=== PATIENT | male | born 1940 | race Caucasian/White ===

== ENCOUNTER → 2017-03-17 14:17 | Outpatient (CLI) | payer MEDICARE, OTHER ==
[~2017-03-17 14:17] MED LIST: AMOXICILLIN500 M1 PO; ASPIRIN81 MG PO; LIPITOR10 MG PO; PLAVIX75 MG PO
== END | disposition home or self-care (01) ==
LOC: D.US 14:17
DX: I65.23 Occlusion and stenosis of bilateral carotid arteries (principal)

== ENCOUNTER 2017-04-09 05:23 | Inpatient (IN) | payer MEDICARE, OTHER ==
[2017-04-08 10:48] LABS: HEMATOCRIT 42.8 % (42.0-54.0); HEMOGLOBIN 14.3 g/dL (13.5-17.5); MCHC 33.4 g/dL (31.0-37.0); MCV 98.8 fL (80.0-100.0); MEAN PLATELET VOLUME 9.7 fL (7.4-10.4); RBC 4.33 10x6/uL (4.20-6.10); RDW 12.4 % (11.5-14.5)
[2017-04-08 11:02] LABS: APTT 25.5 SECONDS (22.8-39.4); INR 0.96 (0.85-1.17); PROTIME 12.7 SECONDS (11.6-15.0)
[2017-04-08 11:19] LABS: ALBUMIN 3.8 g/dL (3.4-5.0); ANION GAP 7.8 mmol/L (8-16); BILIRUBIN - TOTAL 0.53 mg/dL (0.2-1.3); CALCIUM 11.3 mg/dL (8.5-10.1); CARBON DIOXIDE 30.1 mmol/L (21.0-32.0); CREATININE - SERUM 1.3 mg/dL (0.6-1.3); POTASSIUM - SERUM 4.9 mmol/L (3.5-5.1); PROTEIN - SERUM 7.5 g/dL (6.4-8.2)
[2017-04-08 11:21] LABS: APPEARANCE CLEAR (CLEAR); BILIRUBIN NEGATIVE (NEGATIVE); COLOR YELLOW (YELLOW); GLUCOSE NEGATIVE (NEGATIVE); KETONE NEGATIVE (NEGATIVE); LEUKOCYTE ESTERASE TRACE (NEGATIVE); NITRITE NEGATIVE (NEGATIVE); PROTEIN NEGATIVE (NEGATIVE); UROBILINOGEN NORMAL (NORMAL); WHITE CELLS - URINE 0-5 /hpf (0-5)
[2017-04-08 11:22] LABS: BACTERIA FEW /hpf (NONE SEEN); EPITHELIAL CELLS 0-5 /hpf (0-5); MUCUS <1+ /lpf (NONE SEEN); RED CELLS - URINE OCC /hpf (0-5)
[~2017-04-09] VITALS: Ht 172.7 cm; Wt 90.2 kg
[2017-04-09] VITALS (53 sets, daily range): BP systolic 109–154; BP diastolic 33–71; Ht 172.7 cm; Wt 90.2 kg
--- NOTE | ~2017-04-09 | OP ---
PATIENT NAME: LAURO LINDA MEDICAL RECORD: [id number] :40 LOCATION:[facility] ADMISSION DATE:04/09/17 SURGEON: JACK PORRAS MD OPERATION DATE: 04/09/17 SURGEON: Jack Porras M.D. ANESTHESIA: General endotracheal by Dr. Mcdonnell. PROCEDURE: Right carotid endarterectomy with patch angioplasty. PREOPERATIVE DIAGNOSIS: Severe right internal carotid artery stenosis, progression of disease. POSTOPERATIVE DIAGNOSIS: Severe right internal carotid artery stenosis, progression of disease. INDICATION FOR OPERATION: Progressing stenosis, right internal carotid artery. FINDINGS OF OPERATION: Severe right internal carotid artery stenosis with soft and hard plaque and areas of ruptured plaque. ESTIMATED BLOOD LOSS: Less than 100 mL. PROCEDURE IN DETAIL: After informed consent, adequate preoperative medication, and evaluation, the patient was brought to the operating room and placed stable in the supine position. After induction of general endotracheal anesthesia and application of appropriate monitoring devices, the right neck and chest were prepped and draped in sterile field utilizing Betadine scrub, alcohol, and Betadine solution. Betadine impregnated drape was also used. An oblique incision was made in the skin crease. Dissection carried down to the fascia. Hemostasis maintained with electrocautery. Facial vein was identified and divided utilizing sharp dissection. The common carotid, internal and external carotid arteries were dissected free of surrounding structures protecting the neurological structures. The patient was given a calculated dose of Heparin. After three minutes, clamps were applied. After two minutes, no EEG change. The arteriotomy was made and extended with Mcdaniel scissors. Artery underwent endarterectomy sharply. Artery underwent extensive debridement and irrigation. Utilizing a vascular patch and running 7-0 Prolene suture, the arteriotomy was closed with a patch angioplasty technique. All maneuvers to remove trapped air performed. Clamps removed sequentially. There were no EEG changes. Patient given a calculated dose of protamine to reverse the Heparin. Hemostasis was assured. A #7 Max-Moyer drain was left in the depths of the wound and brought out through the base of the neck. Neck was again irrigated. Instrument count and sponge count were correct times two. Neck was closed in layers utilizing 3-0 Vicryl on the platysma and 5-0 subcuticular Monocryl on the skin. Sterile dressings were applied. The patient tolerated the procedure well and was transferred to cardiovascular recovery in satisfactory condition. OPERATIVE REPORT [id number] LAURO LINDA EDWARD MD CC: [id number] DICTATION DATE: 04/09/17 1400 ACTUARY CLERK: JESICA 04/10/17 1906 ADM IN [place] [id number] [place] [id number]
[~2017-04-09 05:23] MED LIST changes: +FLOMAX0.4 MG PO; -LIPITOR10 MG PO; +LIPITOR40 MG PO; +MYSOLINE 50 MG50 MG PO; +ZESTRIL10 MG PO
--- NOTE | 2017-04-09 06:13 | NUR ---
0545-MARILYN MELVIN HERE, [facility] ON. PEDAL PULSES MARKED. 0555-DR WAN, ANESTHESIA, HERE TO SEE PATIENT.
--- NOTE | 2017-04-09 13:20 | NUR ---
MESSAGE LEFT FOR DR. FIGUEROA'S NURSE TO CALL CONSULT.
--- NOTE | 2017-04-09 16:05 | NUR ---
CLEVIPREX STARTED DUE TO MAX DOSE OF NITRO.
--- NOTE | 2017-04-09 16:45 | NUR ---
DR. PORRAS NOTIFIED OF MAX DOSE OF CLEVIPREX INFUSING. NEW ORDERS RECIEVED. MEDS GIVEN PER DEC.
--- NOTE | 2017-04-09 19:00 | NUR ---
1900: Pt rec'd resting HOB 30 degrees with eyes open. Pupils DARREN+ bilat. SMCx4=bilat area loss prevention manager and able to move extrem x4 vs gravity. Pt denies pain, tingling, or numbness. Trachea midline and no stridor is heard. Right neck dressing intact with no s/s of bleeding, oozing, or swellling. Midline proximal neck GERMAIN drain to bulb sx with scant bloody output. S1S2 regular SB 59 on CM. Right radial ART line trasduced to CM with proper wf and tracking. RDLSC with CVP transduced to CM zeroed with proper wf reading 1-2 at this time. IV gtts per flow sheet. ABD soft NT BSx4 active. Criticore catheter to gravity drainage with yellow UOP >100cc/hr output. SR up x2, call light in reach and pt demonstrated use. All alarms on and audible. Bed alarm on and audible.
--- NOTE | 2017-04-09 21:00 | NUR ---
2100: requested to stay at bedside. Explained ICU protocol etc.. and verbalized understanding. Allowed to stay at bedside and provided blanket and pillows. No change in pt RESP/CV/NV status. No change in IVF/UOP.
--- NOTE | 2017-04-09 22:30 | NUR ---
2230: Pt SBP 120-130 at this time. Continue to titrate Cleviprex as ordered.
[2017-04-10] VITALS (75 sets, daily range): BP systolic 120–147; BP diastolic 30–60
--- NOTE | 2017-04-10 00:30 | NUR ---
0030: Pt temp increased. Removed multiple blankets and adjusted room temp. Pt denies any c/o at this time. Pt remains SB/SR on CM 59-60bpm with SBP 130's per right radial art line. Continue to titrate Cleviprex as per orders. Neck incision unchanged from assessment and only scant output in GERMAIN drain. No s/s of stridor seen. Pt does snore at times with rest.
--- NOTE | 2017-04-10 03:15 | NUR ---
0315: Pt remains resting HOB 30 degrees with eyes closed. Pt easily arousable to verbal. No change in neuro status from assessment. right neck incision CDI with no swelling, oozing, or bleeding noted. Trachea midline and no s/s of stridor. Pt remains SR on CM 60's with SBP 140's per radial art line. Continue to titrate Cleviprex as per orders.
--- NOTE | 2017-04-10 06:00 | NUR ---
0600: Pt repositioned for comfort at this time. Pt remains SR 60's on CM with SBP 130-140. Continues on Cleviprex gtt to keep SBP<140. Right neck dressing CDI with no bleeding, oozing, or swelling seen.
--- NOTE | 2017-04-10 06:15 | NUR ---
0615: Pt SBP increased 140's at this time. Continue to titrate Cleviprex gtt to keep less than 140.
--- NOTE | 2017-04-10 07:00 | NUR ---
0700: Proximal Chest GERMAIN removed by Levi Adan with sterile technique. Dressing applied. No bleeding, oozing, or swelling from site.
--- NOTE | 2017-04-10 11:18 | NUR ---
A-LINE AND IFEOMA DC'D PER ORDER. CLEVIPREX TITRATING OFF. BED BATH GIVEN. LINENS CHANGED. PT UP TO CHAIR FOR MEAL.
--- NOTE | 2017-04-10 11:29 | HP ---
PATIENT: LAURO LINDA MEDICAL RECORD: [id number] ACCOUNT: [id number] LOCATION:[facility] Val[facility]06 : 40 ADMISSION DATE: 04/09/17 HISTORY AND PHYSICAL EXAMINATION NameLAURO LINDA (76yo, M) ID# [id number]. Date/Time03/18/2017 10:52APIFM39 1940Service Dept.[facility] ClinicProvitoanEDCASSANDRA PORRAS MDInsuranceMed Primary: [place] Insurance # : [id number] Employer Name : RETIRED Med Secondary: [employer] (PPO) Insurance # : [id number] Policy/Group # : [id number] Employer Name : RETIRED Prescription: CMX - Member is eligible. Chief Complaint Carotid stenosis s/p LCEA 01/27/14 six months w carotid doppler Patient's Care Team Referring Provider: RAI KRAFT MD: [address], [place] [address], , Primary Care Provider: GRACIELA LEYVA DO: [address] [place] [address], , Patient's Pharmacies [facility] ([facility]): [phone], [facility] [address], , Vitals BP:108/50 sitting R arm 03/18/2017 10:46 am 140/64 sitting L arm 03/18/2017 10:47 amBP Cuff Size:adult 03/18/2017 10:46 am adult 03/18/2017 10:47 amHR:60,reg 03/18/2017 10:47 amHt:5 ft 7 in 03/18/2017 10:43 amNotes:only complaint is some left arm pain at times, dizziness with some position changes 03/18/2017 10:48 amAllergies Allergies not reviewed (last reviewed 07/23/2016) NKDAMedications Reviewed Medications amLODIPine 10 mg lgoiap79/28/14 filledCaremarkamoxicillin 500 mg cybqapu92/20/16 filledCaremarkatorvastatin 10 mg /23/14 filledCaremarkatorvastatin 40 mg mjweiu05/18/17 filledCaremarkazithromycin 250 mg csjlii87/12/17 filledCaremarkclopidogrel 75 mg fxlreb99/31/16 filledCaremarkclotrimazole 1 % topical cream10/31/15 filledCaremarkfluticasone 50 mcg/actuation nasal spray,/20/16 filledCaremarkipratropium bromide 0.03 % nasal spray10/15/16 filledCaremarklisinopril 10 mg oafqaw40/18/17 filledCaremarkomeprazole 20 mg capsule,delayed oljunwm86/17/14 filledCaremarkpantoprazole 40 mg tablet,delayed /23/14 filledCaremarkprimidone 50 mg /18/17 filledCaremarksulfamethoxazole 800 mg-trimethoprim 160 mg gxcham66/28/16 filledCaremarktamsulosin 0.4 mg eohdsvl87/18/17 filledCaremarkProblems Reviewed Problems Carotid artery stenosis Carotid artery occlusion Family History Reviewed Family History HISTORY AND PHYSICAL [id number] LAURO LINDA Father- Malignant tumor of prostateMother- Parkinson's diseaseSocial History Reviewed Social History Cardiology Smoking Status: Former smoker High Cholesterol: Y High blood pressure: Y Surgical History Reviewed Surgical History Other - 01/16/2014 - colonoscopy removed polys Past Medical History Reviewed Past Medical History Carotid Stenosis: Y High Blood Pressure: Y Documents for Discussion N/A Screening None recorded. HPI Cerebral Vascular Disease Reported by patient. Quality: dizziness progression of disease right internal carotid artery stenosis ROS Patient reports numbness but reports no loss of consciousness, no weakness, no seizures, no dizziness, and no headaches; visual disturbances OD Intention tremor) chronic. He reports no fever, no night sweats, no significant weight gain, no significant weight loss, and no exercise int olerance. He reports no dry eyes, no irritation, and no vision change. He reports no difficulty hearing and no ear pain. He reports no frequent nosebleeds and no nose/sinus problems. He reports no sore throat, no bleeding gums, no snoring, no dry mouth, n o mouth ulcers, no oral abnormalities, and no teeth problems. He reports no jugular vein distension and no swollen glands. He reports no chest pain, no arm pain on exertion, no shortness of breath when walking, no shortness of breath when lying down, no pa l pitations, and no known heart murmur. He reports no cough, no wheezing, no shortness of breath, and no coughing up blood. He reports no abdominal pain, no vomiting, normal appetite, no diarrhea, not vomiting blood, no nausea, and no constipation. He repor t s no incontinence, no difficulty urinating, no hematuria, and no increased frequency. He reports no muscle aches, no muscle weakness, no arthralgias/joint pain, no back pain, and no swelling in the extremities. He reports no abnormal mole, no jaundice, an d no rashes. He reports no depression, no sleep disturbances, feeling safe in relationship, and no alcohol abuse. He reports no fatigue. He reports no swollen glands and no bruising. He reports no runny nose, no sinus pressure, no itching, no hives, and no frequent sneezing. ROS as noted in the HPI Physical Exam Patient is a 76-year-old male. Constitutional: General Appearance well nourished and developed and healthy-appearing. Level of Distress NAD. Ambulation ambulating normally. Cardiovascular: Apical Impulse not displaced or no thrill. Heart Auscultation normal s1 and s2; no murmurs, rubs, or gallops; and RRR. Arterial Pulses no abdominal aorta bruits, femoral bruits, or popliteal bruits and 2+ bilateral, carotid 2+ bilateral, femoral 2+ bilateral, po pliteal 2+ bilateral, and dorsalis pedis 2+ bilateral. HISTORY AND PHYSICAL [id number] LAURO LINDA H Edema no edema or varicosities. Lungs: Repiratory Effort no dyspnea. Percussion no hyperresonance or dullness or flatness. Auscultation no wheezing, rhonchi, or rales / crackles and breathing sounds normal, good air movement, and CTA except as noted. Abdomen: Bowl Sounds normal. Inspection and Palpation no tenderness, guarding, masses, or rebound tenderness and soft and non-distended. Liver non-tender and no hepatomegaly. Spleen non-tender and no splenomegaly. Hernia none palpable. Ears, Nose, Throat: Hearing grossly normal hearing. Nose no external nose lesion. Lips, Teeth, and Gums no mouth or lip ulcers. Oropharynx: moist mucous membranes. Musculoskeletal System: Gait And Stance normal gait and sta nce. Digits and Nails normal nails and no cyanosis. Joints, Bones, and Muscles normal strength and movement of all extremities. Neurologic: Cranial Nerves grossly intact. Reflexes DTRs 2+ bilaterally throughout. Sensation grossly intact. Lymph Nodes: Lymph Nodes no cervical LAD, supraclavicular LAD, axillary LAD, or inguinal LAD. Eyes: Lids and Conjunctivae no discharge or pallor and non-injected. Pupils PERRLA. Cornea grossly intact. EOM EOMI. Lens clear. Sclerae non-icteric. Neck: Neck no masses or enlarged lymph nodes and supple, trachea midline, and carotid bruits (BILAT). Thyroid no enlargement or nodules and non-tender. Skin: Inspection and Palpation no rash, lesions, ulcers, jaundice, or abnormal nevi. Assessment / Plan progression of disease right internal carotid artery 1. Carotid artery stenosis I65.21: Occlusion and stenosis of right carotid artery CAROTID STENOSIS: CARE INSTRUCTIONS Discussion Notes Plavix 75 mg 2 tabs today Then 1 daily I have discussed his disease process with him in detail as well as the alternative methods of treatment. We discussed right carotid endarterectomy including the expected benefits and risks which include bleeding, infection, stroke, , and the imponderables. We'll start Pl avix 75 mg a day. The patient and his understand all of the above and wishes to proceed with planned surgery his last CT angiogram was in July 2016 therefore I do not think it needs to be repeated. HISTORY AND PHYSICAL [id number] LAURO LINDA EDWARD MD at 1129 CC: [id number] DICTATION DATE: 03/18/17 1030 BRIDGE MECHANIC: JESICA 04/07/17 0842 ADM IN [facility] [address] [place] [id number]
--- NOTE | 2017-04-10 19:30 | NUR ---
RECEIVED CARE OF PT, ASSESSMENT PER FLOWSHEET. PT ALERT AND ORIENTED X 4 SITTING UP IN CHAIR IN NO APPARENT DISTRESS, HR SR ON CM AT A RATE OF 75, BREATH SOUNDS CTA WITH DIM BASES, PPP, RT NECK DRESSING REINFORCED WITH TEGADERM BUT CLEAN AND DRY, RT CHEST DRESSING CDI, NO S/S HEMATOMA FORMATION NOTED. ON 2L O2 VIA NC, CLEVIPREX INFUSING AT 30CC VIA RT SC, DRESSING CDI, DENIES PAIN OR ANY NEEDS AT THIS TIME, WILL MONITOR.
--- NOTE | 2017-04-10 21:20 | NUR ---
PT AT BEDSIDE, PT CONVERSING EASILY IN NO APPARENT DISTRESS, BOTH DENY ANY NEEDS AT THIS TIME.
--- NOTE | 2017-04-10 23:15 | NUR ---
REASSESSMENT PER FLOWSHEET, NO ACUTE CHANGES NOTED AT THIS TIME, PT POSITIONED FOR COMFORT, VSS, CALL LIGHT IN REACH.
[2017-04-11] VITALS (45 sets, daily range): BP systolic 118–142; BP diastolic 42–68
--- NOTE | 2017-04-11 01:07 | NUR ---
PT AROUSES EASILY TO VOICE, DENIES ANY NEEDS AT THIS TIME, WILL CONT TO MONITOR.
--- NOTE | 2017-04-11 03:50 | NUR ---
PT RESTING IN BED WITH EYES CLOSED, VSS, CONT TO MONITOR.
--- NOTE | 2017-04-11 05:27 | NUR ---
PT AWAKE LYING IN BED, DENIES ANY NEEDS AT THIS TIME, WILL CONT POC.
--- NOTE | 2017-04-11 09:00 | NUR ---
CLEVIPREX TURNED OFF.
--- NOTE | 2017-04-11 12:40 | NUR ---
CVL DC'D PER ORDER. MANUAL PRESSURE APPLIED TIMES 5 MINS. CATH TIP FULLY INTACT. CLEAR DRESSING APPLIED.
--- NOTE | 2017-04-11 13:10 | NUR ---
PT DC'D HOME.
== END 2017-04-11 13:10 | disposition home or self-care (01) | DRG 39 ==
LOC: D.SDCHOLD 05:23 → D.CVICU 05:23 → D.SDCHOLD 07:30 → D.CVICU 10:00
PROVIDERS: ADMIT Internal Medicine Cardiovascular Disease
PROC: 03UK0JZ Supplement Right Internal Carotid Artery with Synthetic Substitute, Open Approach (ICD-10-PCS; 2017-04-09)
PROC: 03CK0ZZ Extirpation of Matter from Right Internal Carotid Artery, Open Approach (ICD-10-PCS; principal; 2017-04-09 07:30)
DX: I65.21 Occlusion and stenosis of right carotid artery (principal); R09.89 Other specified symptoms and signs involving the circulatory and respiratory systems; E78.00 Pure hypercholesterolemia, unspecified; I10 Essential (primary) hypertension; Z87.891 Personal history of nicotine dependence

== ENCOUNTER → 2018-02-10 12:51 | Outpatient (CLI) | payer MEDICARE, OTHER ==
[2017-04-09 12:46] VITALS: BMI 28.8
--- NOTE | ~2018-02-10 | EC ---
PATIENT:LAURO LINDA DATE OF SERVICE: 02/10/18 SEX: M MEDICAL RECORD: [id number] DATE OF : 40 LOCATION:[facility] AGE OF PATIENT: 77 ADMISSION DATE: 02/10/18 REFERRING PHYSICIAN: INTERPRETING PHYSICIAN: MOISÉS MCCOY MD ECHOCARDIOGRAM REPORT ECHO CHARGES 4 ECHO COMPLETE Date: 02/10 CLINICAL DIAGNOSIS: HTN/CHEST PAIN/DYSPNEA ECHOCARDIOGRAPHIC MEASUREMENTS (adult normal given) AC root (d.<3.7cm) 3.3 cm LV Septum d (<1.2 cm> 1.4 cm Valve Excursion 1.7 cm LV Septum (systole) 2.0 cm Left Atria (s.<4.0cm> 3.6 cm LVPW d(<1.2cm) 1.9 cm RV (d.<2.3cm) 4.2 cm LVPW (sytole) 2.0 cm LV diastole(<5.6CM) 5.3 cm MV E-F(>70mm/sec) cm LV systole 3.3 cm LVOT Diameter 1.5 cm MV exc.(>10mm) 1.5 cm Est.ejection fraction (50-75%) % DOPPLER: LVIT cm/sec A 77.0 cm/sec E 69.0 cm/sec LA cm/sec RVSP 44 mmHg LVOT 159 cm/sec AOP1/2T m/s Asc. Ao 259 cm/sec RVOT 113 cm/sec RA cm/sec PA 177 cm/sec AV Gradient Peak 26.76mmHg AV Mean 11.51mmHg AV Area 1.0 cm MV Gradient Peak 5.36 mmHg MV Mean 1.39 mmHg MV Area cm COMMENTS: Pipelines Superintendent: Chris REDMAN Firepot Operator And Tender: Jose Ramon Mccoy TAPE# PACS Pericardial Effusion N DATE OF SERVICE: 02/10/2018 PROCEDURE: Transthoracic echocardiogram. FINDINGS: 1. Left ventricle shows [id number] left ventricular hypertrophy. Ejection fraction is 65% to 70%. Structures are not well defined, but we can see endocardial movement well. 2. Left atrium appears to be grossly normal. 3. The aortic valve is normal. ECHOCARDIOGRAM REPORT [id number] LAURO LINDA 4. The mitral and tricuspid valve are normal, however, the RVSP is mildly elevated at 40-45 mmHg. 5. The right ventricle is moderately dilated at 4.2 cm. 6. The right atrium not well visualized. 7. The IVC is shown to be normal size and collapses with sniff test. CONCLUSION: The patient has evidence of hypertensive heart disease with diastolic dysfunction and mild elevations of pulmonary pressures. TRANSINT:[id number] Voice Confirmation ID: [id number] DOCUMENT ID: [id number] MOISÉS MCCOY MD at 0819 CC: [id number] DICTATION DATE: 02/15/18 0755 SUPERVISOR SILVERING DEPARTMENT: 02/15/18 1255 DEP CLI 02/10/18 [facility] [address] [place] [address]
[~2018-02-10 12:51] MED LIST changes: +PREDNISONE20 MG PO
== END | disposition home or self-care (01) ==
LOC: D.ECHO 12:51
DX: I10 Essential (primary) hypertension (principal); R07.9 Chest pain, unspecified; R06.00 Dyspnea, unspecified; I73.9 Peripheral vascular disease, unspecified; R09.89 Other specified symptoms and signs involving the circulatory and respiratory systems

== ENCOUNTER → 2018-03-01 07:43 | Outpatient (CLI) | payer MEDICARE, OTHER ==
[~2018-03-01] VITALS: Ht 172.7 cm; Wt 84.1 kg
--- NOTE | ~2018-03-01 | HEMODYNAMI ---
PATIENT:LAURO LINDA MEDICAL RECORD: [id number] : 40 LOCATION:[facility] ADMISSION DATE: 03/01/18 Generatedon:03/01/201811:11 Patient name: LAURO LINDA Patient #: [id number] SSN: : 1940 Date of study: 03/01/2018 Page: Of Hemodynamic Procedure Report Patient Data Patient Demographics Procedure consent was obtained First Name: LAURO Gender: Male Last Name: ALEXEI : 1940 Middle Initial: H Age: 77 year(s) Patient #: [id number] Race: Unknown Additional ID: [id number] Contact details [address]: [address] [place] [address] State: [place] City: [place] Zip code: [address] Past Medical History Allergies Allergen Reaction Date Comments Reported Other allergy 03/01/2018 LATEX, MENTHOLATUM Admission Admission Data Admission Date: 03/01/2018 Admission Time: 7:43 Height (in.): 5.8 BSA: 0.34 (m2) Height (cm.): 14.73 BMI: 3970.97 (kg/m2) Weight (lbs.): 190 Weight (kg.): 86.18 Lab Results Lab Result Date: 03/01/2018 Lab Result Time: 0:00 Biochemistry Name Units Result Min Max BUN mg/dl 18 --(---*)-- 7 18 Creatinine mg/dl 1.2 --(---*)-- 0.6 1.3 CBC Name Units Result Min Max Hemoglobin g/dl 10.9 *-(----)-- 13.5 17.5 Procedure Procedure Types Cath Procedure Diagnostic Procedure [facility] w/Coron[facility] Procedure Description Procedure Date Procedure Date: 03/01/2018 Procedure Start Time: 10:56 Procedure End Time: 11:10 Procedure Staff Name Function Logan Mccoy MD Performing Physician Anika Mariano RT Scrub Caity Herron RT Monitor Ulises Lorigan RN Nurse Procedure Data Cath Procedure Fluoroscopy Diagnostic fluoroscopy Total fluoroscopy Time: 3.5 time: 3.5 min min Diagnostic fluoroscopy Total fluoroscopy dose: 587 dose: 587 mGy mGy Contrast Material Contrast Material Type Amount (ml) Isovue 370 37 Entry Location Entry Primary Successful Side Size Upsize Upsize Entry Closure [place] ccessful Closure Location (Fr) 1 (Fr) 2 (Fr) Remarks Device Remarks Radial Right 6 Fr Mechanical artery Short Compression Estimated blood loss: 5 ml Diagnostic catheters Device Type Used For End Catheter Placement DIAGNOSTIC Marco 110cm LV Angiography 5Fr catheter ([id number]) DIAGNOSTIC Marco 110cm Right Coronary 5Fr catheter ([id number]) Angiography DIAGNOSTIC Marco 110cm Left Coronary 5Fr catheter ([id number]) Angiography Procedure Complications No complications Procedure Medications Medication Administration Route Dosage 0.9% NaCl I.V. 100 ml/hr Oxygen etCO2 Nasal cannula 2 l/min Heparin Flush Bag added to field 2 bags (1000units/500ml NS) Lidocaine 2% added to field 20 Radial Cocktail added to field 1 syringe (Verapomil 2mg/Nitro 400mcg/Heparin 1500units) Versed I.V. 1 mg Fentanyl I.V. 25 mcg Radial Cocktail I.A. 1 syringe (Verapomil 2mg/Nitro 400mcg/Heparin 1500units) Hemodynamics Rest BSA: 0.34 (m2) O2 Consumption: Estimated: 36.22 (ml/min) O2 Consumption indexed: Estimated:106.53 (ml/min/m) Heart Rate: 49 (bpm) Pressure Samples Time Site Value (mmHg) Purpose Heart Use Rate(bpm) 11:01 LV 115/-1,11 EDP 64 Gradients Valve Time Site Site Mean SEP/DFP Peak To Heart Use 1 2 (mmHg) (sec/min) Peak Rate (mmHg) (bpm) Aortic 11:02 LV AO 75 Snapshots Pre Cath Intra NCS Post Cath Vital Signs Time Heart Resp SPO2 etCO2 NIBP (mmHg) Rhythm Pain Sedation Rate (ipm) (%) (mmHg) Status Level (bpm) 10:50:02 45 13 100 37.2 120/63(100) NSR 0 (11) 10(A) , No pain 10:55:21 49 18 100 0 118/63(99) NSR 0 (11) 10(A) , No pain 11:00:04 49 14 100 12.6 101/51(73) NSR 0 (11) 10(A) , No pain 11:04:51 47 12 100 20.1 98/47(82) NSR 0 (11) 9(A) , No pain 11:09:50 46 21 98 20.8 Measuring NSR 0 (11) 9(A) , No pain 11:10:06 44 16 100 21.6 111/53(84) NSR 0 (11) 9(A) , No pain Medications Time Medication Route Dose Verified Delivered Reason Notes Effectiveness by by 10:47:45 0.9% NaCl I.V. 100 Ulises Ulises Per ml/hr Lorigan Deanneigan physician RN RN 10:47:56 Oxygen etCO2 2 l/min Ulises Ulises Per Nasal Lormaynor Petty physician cannula RN RN 10:48:37 Heparin Flush added 2 bags Ulises Ulises used for Bag to Malinda Petty procedure (1000units/500ml RN RN NS) 10:48:50 Lidocaine 2% added 20ml Ulises Ulises for local to vial Lorigan Lorigan anesthetic RN RN 10:49:01 Radial Cocktail added 1 Ulises Ulises used for (Verapomil to syringe Lorigan Lorigan procedure 2mg/Nitro RN RN 400mcg/Heparin 1500units) 10:57:50 Versed I.V. 1 mg Ulises Ulises for sedation Malinda Petty RN RN 10:57:59 Fentanyl I.V. 25 mcg Ulises Ulises for sedation Malinda Petty RN RN 10:59:15 Radial Cocktail I.A. 1 Ulises Logan for (Verapomil syringe Malinda valadez 2mg/Nitro RN 400mcg/Heparin 1500units) Procedure Log Time Note 10:32:46 Signed procedure consent form obtained from patient. 10:32:54 Anika Mariano RT(R) sent for patient. Start room use. 10:32:55 Time tracking: Regular hours (M-F 7:00 - 5:00) 10:32:59 Plan of Care:Hemodynamics will remain stable., Cardiac rhythm will remain stable., Comfort level will be maintained., Respiratory function will remain adequate., Patient/ family verbilizes understanding of procedure., Procedure tolerated without complication., Recovers from procedure without complications.. 10:33:18 H&P Date Dictated: 02/24/2018 Within 30 days and on chart., H&P Addendum completed by physician on day of procedure. (MUST COMPLETE FOR ALL OUTPATIENTS). 10:34:50 Lab Result : BUN 18 mg/dl 10:34:50 Lab Result : Creatinine 1.2 mg/dl 10:34:50 Lab Result : Hemoglobin 10.9 g/dl 10:35:19 Patient allergic to Other allergyLATEX, MENTHOLATUM 10:35:43 Patient Height : 5.8 inches 10:35:46 Patient Weight : 190 lbs 10:38:31 Patient received from Pre/Post Procedure Room to CCL 1 Alert and oriented. Tansferred to table in Supine position. 10:38:32 Warm blankets applied, and janelle hugger turned on for patient comfort. 10:38:33 Correct patient and procedure confirmed by team. 10:38:34 ECG and BP/O2 sat monitors applied to patient. 10:47:45 0.9% NaCl 100 ml/hr I.V. was administered by Ulises Petty RN; Per physician; 10:47:56 Oxygen 2 l/min etCO2 Nasal cannula was administered by Ulises Petty RN; Per physician; 10:48:37 Heparin Flush Bag (1000units/500ml NS) 2 bags added to field was administered by Ulises Petty RN; used for procedure; 10:48:50 Lidocaine 2% 20ml vial added to field was administered by Ulises Petty RN; for local anesthetic; 10:49:01 Radial Cocktail (Verapomil 2mg/Nitro 400mcg/Heparin 1500units) 1 syringe added to field was administered by Ulises Petty RN; used for procedure; 10:49:05 Vital chart was started 10:54:15 Full Disclosure recording started 10:54:17 Pre-procedure instructions explained to patient. 10:54:17 Pre-op teaching completed and patient verbalized understanding. 10:54:20 Rhythm: sinus rhythm 10:54:22 Baseline sample Acquired. 10:54:26 Family in patients room. 10:54:28 Is the patient allergic to Iodine/contrast media? No. 10:54:30 Is patient on blood thinner?Yes 10:54:32 ACC The patient was administered the following blood thiners within the last 24 hours: ACCAspirin, ACCPlavix 10:54:34 Patient diabetic? No. 10:54:37 Previous problem with sedation/anesthesia? No ? 10:54:37 Snore? Yes 10:54:38 Sleep apnea? Yes 10:54:39 Deviated septum? No 10:54:40 Opens mouth fully? Yes 10:54:41 Sticks out tongue? Yes 10:54:42 Airway obstruction? No ? 10:54:44 Dentures? No ? 10:54:46 Pre procedure: right dorsailis pedis pulse 2+ Normal; easily identifiable; not easily obliterated 10:54:48 Modified Chilo's test Ulnar < 7 seconds 10:54:49 Patient pain scale 0/10 ?. 10:54:52 IV patent on arrival in left hand with 0.9% NaCl at [facility]. 10:54:54 Lab results completed and on chart. 10:54:57 Right Radial & Right Groin area was prepped with chlora-prep and draped in sterile fashion 10:54:57 Alarms reviewed by R. N. 10:54:58 Sharps counted by scrub and verified by R.N. 10:54:59 Final Timeout: patient, procedure, and site verified with staff and physician. All members of the team are in agreement. 10:55:01 Right Radial site verified by team. 10:55:04 Physical assessment completed. ASA score P 2 - A patient with mild systemic disease as per Logan Mccoy MD. 10:55:07 Sedation plan: IV Moderate Sedation Medication:Versed, Fentanyl 10:56:23 Procedure started. 10:56:26 Local anesthetic to right radial artery with Lidocaine 2% by Logan Mccoy MD.INITIAL ACCESS ONLY 10:56:28 Zero performed for pressure channel P1 10:57:13 A 6 Fr Short sheath was inserted into the Right Radial artery 10:57:50 Versed 1 mg I.V. was administered by Ulises Petty RN; for sedation; 10:57:59 Fentanyl 25 mcg I.V. was administered by Ulises Petty RN; for sedation; 10:58:06 Use device set Radial Dx or PCI 10:58:07 ACIST Syringe (10954) opened to sterile field. 10:58:07 Medline Cath Pack ([id number]) opened to sterile field. 10:58:08 Bag Decanter (2002) opened to sterile field. 10:58:08 DIAGNOSTIC WIRE .035 260cm J wire (464376) opened to sterile field. 10:58:08 ACIST Hand Control (39883) opened to sterile field. 10:58:09 ACIST Manifold (41333) opened to sterile field. 10:58:13 MBrace Wrist Support ([id number]) opened to sterile field. 10:58:14 SHEATH 6Fr Prelude Radial ([id number]) opened to sterile field. 10:59:08 A DIAGNOSTIC Marco 110cm 5Fr catheter (898839) was advanced over the wire and used for LV Angiography. 10:59:15 Radial Cocktail (Verapomil 2mg/Nitro 400mcg/Heparin 1500units) 1 syringe I.A. was administered by Logan Mccoy MD; for vasodilation; 11:02:14 LV gram done using NARANJO 11:02:19 Injector settings: Ml/sec: 12, Volume: 8, 11:02:21 LV hemodynamics recorded. 11:02:28 A DIAGNOSTIC Marco 110cm 5Fr catheter (214078) was advanced over the wire and used for Right Coronary Angiography. 11:05:00 A DIAGNOSTIC Marco 110cm 5Fr catheter (117647) was advanced over the wire and used for Left Coronary Angiography. 11:05:02 Catheter removed. 11:05:12 Sheath removed intact; hemostasis achieved with Mechanical Compression to the Right Radial artery. 11:05:14 Procedure ended.(Physican Out) 11:06:07 Fluoroscopy time 03.50 minutes. 11:06:11 Fluoroscopy dose: 587 mGy 11:06:11 Flurop Dose total: 587 11:06:20 Contrast amount:Isovue 370 37ml. 11:06:44 Sharps counted by scrub and verified by R.N. 11:06:46 TR band inflated with 8cc of air. 11:06:47 Insertion/operative site no bleeding no hematoma. 11:06:56 Post right radial artery:stable, clean and dry 11:06:58 Post Procedure Pulses reassessed and unchanged 11:07:02 Post-procedure physical assessment completed. ASA score P 2 - A patient with mild systemic disease as per Logan Mccoy MD. 11:07:05 Post procedure rhythm: unchanged. 11:07:09 Estimated blood loss: 5 ml 11:07:11 Post procedure instruction explained to patient.Patient verbalizes understanding. 11:07:12 Patient needs reinforcement of post procedure teaching. 11:07:29 Procedure Complication : No complications 11:07:30 See physician's report for complete and final results. 11:07:43 TR BAND Standard ([id number]) opened to sterile field. 11:08:36 Procedure and supply charges have been captured, reviewed, submitted and are correct. 11:10:13 Vital chart was stopped 11:10:15 Report given to Pre/Post Procedure Room. 11:10:[address] MCCOY CONSULTED WITH DR MCDANIELS ABOUT CABG. 11:10:54 Patient transfered to Pre/Post Procedure Room with Stretcher. 11:10:56 Procedure ended. 11:10:56 Full Disclosure recording stopped 11:11:08 End room use (Document Last) Device Usage Item Name Manufacture Quantity Catalog Number Hospital Part Current M inimal Lot# / Charge Number Stock Stock Serial# Code ACIST Syringe Acist 1 64627 524352 449498 [id number] 2 0 (42595) Medical [employer] Inc Medline Cath Cardinal 1 [id number] 834809 68751 [id number] 5 [facility] ([id number]) Bag Decanter Microtek 1 2001S 194412 84598 034783 5 (2001S) Medical Inc. DIAGNOSTIC WIRE St Babak 1 440168 753048 304251 513844 3 0 .035 260cm J wire (344895) ACIST Hand Acist 1 72165 787700 696971 789150 5 Control (37339) [employer] Inc ACIST Manifold Acist 1 38336 252882 677597 172596 5 (14870) Medical Systems Inc MBrace Wrist Advanced 1 140-0250-00 657999 49733 414456 5 Support Vascular ([id number]) Dynamics SHEATH 6Fr Merit 1 [id number] 263696 296313 882597 5 Prelude Radial Medical ([id number]) DIAGNOSTIC Terumo 1 42-6635 551738 911839 470231 5 Marco 110cm 5Fr catheter (305280) TR BAND Terumo 1 [id number] 223862 916249 437969 4 0 Standard ([id number]) Signature Audit [place] Stage Time Signature Unsigned Intra-Procedure 03/01/2018 Caity 11:11:24 AM Counts RT(R) Signatures Monitor : Caity Signature : Counts RT Date : Time : [address] [place] [address]
[~2018-03-01 07:43] MED LIST changes: +COLACE100 MG PO; +CORDARONE200 MG PO; +PERCOCET 10/3251 TA1 PO; +TOPROL XL25 MG PO
[2018-03-01 08:21] VITALS: BP 135/39; Ht 172.7 cm; Wt 84.1 kg
[2018-03-01 08:36] LABS: BASOPHILS 0.1 % (0-2); EOSINOPHILS 1.1 % (0-7); HEMATOCRIT 33.2 % (42.0-54.0); HEMOGLOBIN 10.9 g/dL (13.5-17.5); IMMATURE GRANULOCYTES 0.6 % (0-5); LYMPHOCYTES 21.1 % (15-50); MCH 32.3 pg (26.0-34.0); MCHC 32.8 g/dL (31.0-37.0); MCV 98.5 fL (80.0-100.0); MEAN PLATELET VOLUME 9.2 fL (7.4-10.4); NEUTROPHILS 70.1 % (40-80); PLATELET COUNT 136 10x3/uL (130-400); RBC 3.37 10x6/uL (4.20-6.10); RDW 15.6 % (11.5-14.5)
[2018-03-01 08:53] LABS: ANION GAP 10.4 mmol/L (8-16); CALCIUM 9.5 mg/dL (8.5-10.1); CARBON DIOXIDE 27.7 mmol/L (21.0-32.0); CREATININE - SERUM 1.2 mg/dL (0.6-1.3); POTASSIUM - SERUM 4.1 mmol/L (3.5-5.1)
== END | disposition home or self-care (01) ==
LOC: D.CATH 07:43
PROVIDERS: Internal Medicine Cardiovascular Disease
DX: I25.119 Atherosclerotic heart disease of native coronary artery with unspecified angina pectoris (principal); Z01.812 Encounter for preprocedural laboratory examination

== ENCOUNTER 2018-03-14 10:16 | Emergency (ER) | payer MEDICARE, OTHER ==
[~2018-03-14] VITALS: Ht 172.7 cm; Wt 84.1 kg
[~2018-03-14 10:16] MED LIST changes: -COLACE100 MG PO; -CORDARONE200 MG PO; -PERCOCET 10/3251 TA1 PO; -TOPROL XL25 MG PO
[2018-03-14 10:22] VITALS: Ht 172.7 cm; Wt 84.1 kg
[2018-03-14 11:11] LABS: BASOPHILS 0.1 % (0-2); EOSINOPHILS 0.2 % (0-7); HEMATOCRIT 38.9 % (42.0-54.0); HEMOGLOBIN 13.2 g/dL (13.5-17.5); IMMATURE GRANULOCYTES 0.3 % (0-5); LYMPHOCYTES 11.9 % (15-50); MCH 33.3 pg (26.0-34.0); MCHC 33.9 g/dL (31.0-37.0); MCV 98.2 fL (80.0-100.0); MEAN PLATELET VOLUME 9.3 fL (7.4-10.4); MONOCYTES 3.7 % (2-11); NEUTROPHILS 83.8 % (40-80); PLATELET COUNT 146 10x3/uL (130-400); RBC 3.96 10x6/uL (4.20-6.10); RDW 15.2 % (11.5-14.5); WBC 8.6 10x3/uL (4.8-10.8)
[2018-03-14 11:36] LABS: ALBUMIN 3.7 g/dL (3.4-5.0); ALKALINE PHOSPHATASE 67 U/L (46-116); ALT (SGPT) 27 U/L (10-68); CALC OSMOLALITY 287 mosm/kg (275-300); CALCIUM 10.4 mg/dL (8.5-10.1); CARBON DIOXIDE 28.4 mmol/L (21.0-32.0); CHLORIDE - SERUM 108 mmol/L (98-107); CREATININE - SERUM 1.1 mg/dL (0.6-1.3); GLUCOSE 118 mg/dL (74-106); POTASSIUM - SERUM 4.8 mmol/L (3.5-5.1); SODIUM 144 mmol/L (136-145); UREA NITROGEN 13 mg/dL (7-18); eGFR NON AFRICAN AMERICAN 69 mL/min (90-120)
[2018-03-14 11:44] LABS: TROPONIN-I < 0.017 ng/mL (0.000-0.060)
[2018-03-14 13:40] VITALS: BP 138/062
== END 2018-03-14 13:40 | disposition home or self-care (01) ==
LOC: D.ER 10:16
PROVIDERS: Family Medicine
DX: M54.12 Radiculopathy, cervical region (principal); Z86.73 Personal history of transient ischemic attack (TIA), and cerebral infarction without residual deficits; I10 Essential (primary) hypertension

== ENCOUNTER 2018-03-18 09:00 | Inpatient (IN) | payer MEDICARE, OTHER ==
[~2018-03-18] VITALS: Ht 172.7 cm; Wt 86.1 kg
--- NOTE | ~2018-03-18 | OP ---
PATIENT NAME: LAURO LINDA MEDICAL RECORD: [id number] :40 LOCATION:D.[facility] ADMISSION DATE:03/22/18 SURGEON: ELÍAS OWENS MD DATE OF OPERATION: 03/22/2018 SURGEON: Elías Owens MD [place] FARMER: ANAYELI Vergara OPERATION PERFORMED: 1. Coronary artery bypass graft times 3 (left internal mammary artery to LAD and reverse saphenous vein graft from aorta to obtuse marginal and aorta to posterior descending artery). 2. Endoscopic saphenous vein harvest. PREOPERATIVE DIAGNOSIS: Coronary artery disease. POSTOPERATIVE DIAGNOSIS: Coronary artery disease. ANESTHESIA: General endotracheal anesthesia. ESTIMATED BLOOD LOSS: Cardiopulmonary bypass with Cell Saver re-transfusion. SPECIMENS: Left internal mammary lymph node. COMPLICATIONS: None. CONDITION: Stable. DISPOSITION: CV ICU. OPERATIVE FINDINGS: 1. Endoscopic vein harvest from the right thigh and just below the knee; however, after cannulation, this vessel was small and thin walled except for the upper portion, which was later used for the posterior descending graft. 2. Open saphenous vein harvest from the left thigh with good quality saphenous vein used for the obtuse marginal graft. 3. Transesophageal echocardiography revealed good global contractility and no valvular problems. 4. Good quality left internal mammary artery. The left anterior descending was a 1.75 mm vessel with moderate disease. 5. The obtuse marginal was severely diseased down to the intramyocardial portion including significant plaque in the intramyocardial portion of the vessel and a significant posterior plaque, 1.5 mm. 6. The posterior descending artery was the larger of the 2 vessels in the inferior wall of the heart, but was only about a 1.25 mm vessel. 7. Sinus bradycardia prior to cardiopulmonary bypass, atrially paced after cardiopulmonary bypass. OPERATIVE INDICATION: Coronary artery disease. OPERATIVE DESCRIPTION OF PROCEDURE: The patient was brought to the operating suite. General anesthesia was obtained, the patient was prepped and draped. Endoscopic saphenous vein harvest of right lower extremity was performed, side branches divided with electrocautery. The vessel was ligated proximally and OPERATIVE REPORT [id number] LAURO LINDA distally removed. Side branches were tied. On the left leg, open harvest with 3 bridging incisions above the knee was performed. The area below the knee was again a small vessel, vessel was removed. The side branches were tied, later the leg was closed in 2 layers. The median sternotomy incision was made. Subcutaneous tissues was divided by electrocautery. The sternum was divided with a saw. The left hemisternum was elevated. The left pleural cavity was entered. Left internal mammary vein was taken as a pedicle graft. Sternal retractor was placed. Pericardium was opened. Heparin was given. Aorta was cannulated. The dual stage venous cannula was inserted. The internal mammary was clipped and made ready for anastomosis. After activated, clotting time was appropriately elevated. The patient was placed on cardiopulmonary bypass. Site for distal anastomosis was selected. The antegrade cardioplegia needle was inserted. The patient was not cooled. Crossclamp was placed. Cardioplegia was given antegrade and this repeated at 15 minute intervals including down the completed vein grafts. Distal anastomoses were performed in standard technique. Proximal anastomosis with single cross-clamp technique. The patient in Trendelenburg position, crossclamp removed. Aortic root de-aired, proximal anastomosis tied down. Flow was then restored after deairing the vein grafts. The patient resumed in a spontaneous bradycardic rhythm after a single defibrillation. Proximal and distal anastomotic sites inspected for bleeding. Single proximal sutures for bleeding. The patient had atrial and ventricular pacing wires placed and then was weaned from cardiopulmonary bypass and was stable. The patient was decannulated. The cannula sites were oversewn. Protamine was given. A drain was placed in the mediastinum both pleural cavity. Thorough irrigation was undertaken. The graft lay appropriately. Pericardial fat was loosely reapproximated. Left chest was evacuated and irrigated as was the right, internal mammary artery site was without bleeding. Sternum was closed with wires. Fascia was closed. Subcutaneous tissue was closed. Skin was closed. Dermabond was placed. The needle and sponge counts were reported as correct. The patient was taken to the ICU in stable condition. TRANSINT:[id number] Voice Confirmation ID: [id number] DOCUMENT ID: [id number] ELÍAS OWENS MD at 1122 CC: [id number] DICTATION DATE: 03/22/18 1537 EDUCATIONAL AID: 03/22/18 1628 ADM IN [address] [place] [id number] [place] [address]
--- NOTE | ~2018-03-18 | HP ---
PATIENT: LAURO LINDA MEDICAL RECORD: [id number] ACCOUNT: [id number] LOCATION:[facility] : 40 ADMISSION DATE: 03/18/18 HISTORY AND PHYSICAL EXAMINATION NameLAURO LINDA (77yo, M) ID# [id number]. Date/Time03/02/2018 03:65AEENH55 1940[facility] Dept.[facility] [facility] ClinicProviderSOHA MCDANIELS MDInsuranceMed Primary: [place] (MED[place]ARE) Insurance # : [id number] Employer Name : RETIRED Med Secondary: AETNA (PPO) Insurance # : [id number] Policy/Group # : [id number] Employer Name : RETIRED Prescription: CMX - Member is eligible. Chief Complaint Coronary artery disease, Carotid stenosis Patient's Care Team Primary Care Provider: HILLARY VICTOR MD: [address] [place] [address], , Medical Office Assistant: MOISÉS MCCOY MD Game Engineer: KATY BOWENS MD: [address] [place] [address], , Patient's Pharmacies [id number] ([place]): [address] [facility] [address], , Vitals BP:144/42 sitting L arm 03/02/2018 03:45 pmBP Cuff Size:adult 03/02/2018 03:45 pmHR:72,reg 03/02/2018 03:45 pmHt:5 ft 7 in 03/02/2018 03:39 pmWt:185 lbs 03/02/2018 03:45 pmNotes:had some dizzy spells, Dr Mccoy did a Holter monitor (pt states HR in 30's at night), had stress test, ECHO, and then LHC. 03/02/2018 03:47 pmBMI:29 03/02/2018 03:45 pmAllergies Reviewed Allergies NKDAMedications Reviewed Medications amLODIPine 10 mg senuqz08/28/14 filledCaremarkamoxicillin 500 mg zozqgjp85/20/16 filledCaremarkatorvastatin 10 mg jwevss54/23/14 filledCaremarkatorvastatin 40 mg cmzetj48/19/18 filledCaremarkazithromycin 250 mg szmgwa99/12/17 filledCaremarkclopidogrel 75 mg zuompx71/17/17 filledCaremarkclotrimazole 1 % topical cream10/31/15 filledCaremarkdiclofenac 3 % topical gel12/14/17 filledCaremarkfluticasone 50 mcg/actuation nasal spray,/20/16 filledCaremarkFluzone High-Dose 9945-0121 (PF) 180 mcg/0.5 mL intramuscular syringe ADM 0.5ML IM UTD110/25/16 filledsurescriptshydroCHLOROthiazide 25 mg sjtehj57/16/18 filledCaremarkipratropium bromide 0.03 % nasal spray10/15/16 filledCaremarklisinopril 10 mg klqegl92/19/18 filledCaremarkomeprazole 20 mg capsule,delayed xzwzrgu01/17/14 filledCaremarkpantoprazole 40 mg tablet,delayed rjkhvci09/23/14 filledCaremarkpredniSONE 20 mg vyasep50/23/18 filledCaremarkprimidone 50 mg odhtqj42/16/18 filledCaremarksulfamethoxazole 800 mg-trimethoprim 160 mg gmsquv53/28/16 filledCaremarktamsulosin 0.4 mg velgbrr58/19/18 filledCaremarkVaccines Reviewed Vaccines Some vaccines listed in Document: #[id number] could not be added to this patient's chart. Please review this document and add these vaccines to the patient's chart manually as needed. Problems HISTORY AND PHYSICAL [id number] LAURO LINDA Reviewed Problems Coronary arteriosclerosis - Onset: 03/02/2018 Carotid artery occlusion Carotid artery stenosis Some problems listed in Document: #[id number] could not be added to this patient's chart. Please review this document and add these problems to the patient's chart manually as needed. Family History Reviewed Family History Father- Malignant tumor of prostateMother- Parkinson's diseaseSocial History Reviewed Social History Cardiology Smoking Status: Former smoker High Cholesterol: Y High blood pressure: Y Surgical History Reviewed Surgical History Carotid Endarterectomy - 04/09/2017 - right Carotid Endarterectomy - 01/27/2014 - left Other - 01/16/2014 - colonoscopy removed polys Past Medical History Reviewed Past Medical History Carotid Stenosis: Y High Blood Pressure: Y Documents for Discussion N/A Screening None recorded. HPI Coronary Artery Disease F/U Reported by patient. Severity: symptoms are worsening Associated Symptoms: no chest pain; no neck pain; no left arm pain; no sweating; no nausea; no stress; dyspnea with exertion 77-year-old male with previous history of carotid endarterectomies by Dr. Martinez, cardiac catheterization yesterday with significant left main LAD stenosis and right coronary occlusion chronic steroids for autoimmune arthritis ROS Additionally reports: As reviewed in the chart with the patient ROS as noted in the HPI Physical Exam Patient is a 77-year-old male. Constitutional: General Appearance well nourished and developed and healthy-appearing. Level of Distress NAD. Ambulation ambulating normally. Cardiovascular: Apical Impulse not displaced or no thrill. Heart Auscultation normal s1 and s2; no murmurs, rubs, or gallops; and RRR. Arterial Pulses no abdominal aorta bruits or femoral bruits and 2+ bilateral, carotid 2+ bilateral, HISTORY AND PHYSICAL [id number] LINDA,DOYCE femoral 2+ bilateral, and dorsalis pedis 2+ bilateral. Edema no edema or varicosities. Lungs: Repiratory Effort no dyspnea. Percussion no hyperresonance or dullness or flatness. Auscultation no wheezing, rhonchi, or rales / crackles and breathing sounds normal, good air movement, and CTA except as noted. Abdomen: Bowl Sounds normal. Inspection and Palpation no tenderness, guarding, chalo s, or rebound tenderness and soft and non-distended. Liver non-tender and no hepatomegaly. Spleen non-tender and no splenomegaly. Hernia none palpable. Musculoskeletal System: Gait And Stance normal gait and stance. Digits and Nails normal nails and no cyanosis. Neurologic: Cranial Nerves grossly intact. Reflexes DTRs 2+ bilaterally throughout. Sensation grossly intact. Lymph Nodes: Lymph Nodes no cervical LAD, supraclavicular LAD, axillary LAD, or inguinal LAD. Eyes: Lids and Conjunctivae no discharge or pallor and non-injected. Pupils PERRLA. Cornea grossly intact. EOM EOMI. Lens clear. Sclerae non-icteric. Neck: Neck no masses, enlarged lymph nodes, or carotid bruits and supple and trachea midline. Thyroid no enlargement or nodules and non-tender. Skin: Inspection and Palpation no rash, lesions, ulcers, jaundice, or abnormal nevi. Assessment / Plan 1. Carotid artery stenosis I65.29: Occlusion and stenosis of unspecified carotid artery CAROTID STENOSIS: CARE INSTRUCTIONS 2. Carotid artery occlusion I65.29: Occlusion and stenosis of unspecified carotid artery Return to Office Jack Martinez MD for Office Visit 15 at [facility] on 04/28/2018 at 09:10 AM SOHA MCDANIELS MD at 1350 CC: [id number] DICTATION DATE: 03/02/18 1530 CADDY: JESICA 03/17/18 1158 PRE IN [facility] [address] [place] [address]
--- NOTE | ~2018-03-18 | TEE ---
PATIENT:LAURO LINDA MEDICAL RECORD: [id number] LOCATION:[place] [address] AGE OF PATIENT: 77 ADMISSION DATE: 03/22/18 SEX: M REFERRING PHYSICIAN: INTERPRETING PHYSICIAN: MARISOL YEE MD TRANSESOPHAGEAL ECHOCARDIOGRAM Date: 03/22/18 LATRICE CHARGE Y INDICATIONS: CABG PREMEDICATIONS: PATIENT'S RESPONSE PROCEDURE DOPPLER MEASUREMENTS: LVIT LA PA RA LVOT RVOT Asc. Ao AV Gradient Peak AV Mean AV Area MV Gradient Peak MV Mean MV Area INTERPRETATION: Doppler: 2-D: EF 55-60% COLOR FLOW DOPPLER TRACE MR NORMAL SALINE STUDY: MISCELLANOUS: DIAGNOSIS: PLAN: Breeder Service Technician:1 Dr. Yee Adjustment Examiner: Chris REDMAN COMMENTS: ENEDELIA PATIENT DATE OF SERVICE: 03/22/2018 PROCEDURE: Transesophageal echo evaluation of valvular structures during bypass surgery. FINDINGS: 1. Left ventricular chamber size is within normal limits. Left ventricular systolic function is normal. Overall ejection fraction estimated at 60%. 2. Left atrium, right atrium, and right ventricle chamber sizes are within TRANSESOPHAGEAL ECHOCARDIOGRAM REPORT [id number] LAURO LINDA normal limits. 3. Valvular structures have normal structure and motion. 4. Doppler interrogation only reveals trace mitral regurgitation, no other valvular insufficiency or stenosis. 5. No evidence of pericardial effusion or left ventricular thrombus. TRANSINT:[id number] Voice Confirmation ID: [id number] DOCUMENT ID: [id number] at 1710 CC: [id number] DICTATION DATE: 03/22/18 0959 BENCH TOOL MAKER: 03/22/18 1219 [place] [address]
[2018-03-18 12:17] LABS: BASOPHILS 0 % (0-2); EOSINOPHILS 0.3 % (0-7); HEMATOCRIT 39.1 % (42.0-54.0); IMMATURE GRANULOCYTES 0.6 % (0-5); LYMPHOCYTES 13.8 % (15-50); MCH 32.9 pg (26.0-34.0); MCHC 33.2 g/dL (31.0-37.0); MEAN PLATELET VOLUME 9.6 fL (7.4-10.4); MONOCYTES 3.8 % (2-11); NEUTROPHILS 81.5 % (40-80); PLATELET COUNT 143 10x3/uL (130-400); RBC 3.95 10x6/uL (4.20-6.10); WBC 7.2 10x3/uL (4.8-10.8)
[2018-03-18 12:21] LABS: APPEARANCE HAZY (CLEAR); BILIRUBIN NEGATIVE (NEGATIVE); COLOR YELLOW (YELLOW); GLUCOSE NEGATIVE (NEGATIVE); KETONE NEGATIVE (NEGATIVE); NITRITE NEGATIVE (NEGATIVE); PROTEIN NEGATIVE (NEGATIVE); SPECIFIC GRAVITY 1.015 (1.005-1.020); UROBILINOGEN NORMAL (NORMAL)
[2018-03-18 12:28] LABS: APTT 24.1 SECONDS (22.8-39.4); INR 0.9 (0.85-1.17); PROTIME 11.8 SECONDS (11.6-15.0)
[2018-03-18 12:45] LABS: ALBUMIN 3.6 g/dL (3.4-5.0); ANION GAP 8.6 mmol/L (8-16); BILIRUBIN - TOTAL 0.3 mg/dL (0.2-1.3); CALCIUM 10.9 mg/dL (8.5-10.1); CARBON DIOXIDE 31.2 mmol/L (21.0-32.0); CREATININE - SERUM 1.1 mg/dL (0.6-1.3); PHOSPHOROUS 2.9 mg/dL (2.5-4.9); POTASSIUM - SERUM 4.8 mmol/L (3.5-5.1); PROTEIN - SERUM 6.8 g/dL (6.4-8.2); T4 THYROXIN - FREE 0.94 ng/dL (0.76-1.46); THYROID STIMULATING HORMONE 0.4 uIU/mL (0.36-3.74); URIC ACID 5.4 mg/dL (2.6-7.2)
[2018-03-22] VITALS (35 sets, daily range): BP systolic 96–168; BP diastolic 42–77; BMI 28.1
[2018-03-22 14:16] LABS: HEMATOCRIT 26.4 % (42.0-54.0); HEMOGLOBIN 8.8 g/dL (13.5-17.5); MCHC 33.3 g/dL (31.0-37.0); MCV 98.9 fL (80.0-100.0); MEAN PLATELET VOLUME 9.5 fL (7.4-10.4); RBC 2.67 10x6/uL (4.20-6.10); WBC 17.8 10x3/uL (4.8-10.8)
[2018-03-22 14:27] LABS: ANION GAP 14.8 mmol/L (8-16); CALCIUM 9.5 mg/dL (8.5-10.1); CARBON DIOXIDE 23.3 mmol/L (21.0-32.0); CREATININE - SERUM 1.1 mg/dL (0.6-1.3); POTASSIUM - SERUM 5.1 mmol/L (3.5-5.1)
[2018-03-22 14:29] LABS: APTT 26.8 SECONDS (22.8-39.4); INR 1.44 (0.85-1.17); PROTIME 17.1 SECONDS (11.6-15.0)
[2018-03-23] VITALS (30 sets, daily range): BP systolic 99–145; BP diastolic 32–514; Ht 172.7 cm; Wt 86.1 kg
[2018-03-23 05:37] LABS: HEMATOCRIT 29.3 % (42.0-54.0); HEMOGLOBIN 9.8 g/dL (13.5-17.5); MCHC 33.4 g/dL (31.0-37.0); MCV 98.7 fL (80.0-100.0); MEAN PLATELET VOLUME 9.5 fL (7.4-10.4); RBC 2.97 10x6/uL (4.20-6.10); RDW 15.2 % (11.5-14.5)
[2018-03-23 05:39] LABS: PLATELET COUNT 91 10x3/uL (130-400); WBC 12.5 10x3/uL (4.8-10.8)
[2018-03-23 05:53] LABS: ALBUMIN 2.8 g/dL (3.4-5.0); ANION GAP 11.5 mmol/L (8-16); BILIRUBIN - TOTAL 0.5 mg/dL (0.2-1.3); CALCIUM 8.9 mg/dL (8.5-10.1); CARBON DIOXIDE 25.2 mmol/L (21.0-32.0); POTASSIUM - SERUM 4.7 mmol/L (3.5-5.1); PROTEIN - SERUM 4.9 g/dL (6.4-8.2)
[2018-03-23 05:57] LABS: CREATININE - SERUM 1.4 mg/dL (0.6-1.3)
[2018-03-23 06:00] LABS: PLATELET ESTIMATE DECREASED
[2018-03-24] VITALS (19 sets, daily range): BP systolic 98–148; BP diastolic 41–98
[2018-03-24 04:50] LABS: HEMATOCRIT 29.8 % (42.0-54.0); HEMOGLOBIN 10.3 g/dL (13.5-17.5); MCH 33.4 pg (26.0-34.0); MCHC 34.6 g/dL (31.0-37.0); MCV 96.8 fL (80.0-100.0); MEAN PLATELET VOLUME 9.5 fL (7.4-10.4); RBC 3.08 10x6/uL (4.20-6.10); RDW 14.9 % (11.5-14.5); WBC 9.8 10x3/uL (4.8-10.8)
[2018-03-24 05:28] LABS: ALBUMIN 2.6 g/dL (3.4-5.0); ANION GAP 10.6 mmol/L (8-16); BILIRUBIN - TOTAL 0.4 mg/dL (0.2-1.3); CALCIUM 9.8 mg/dL (8.5-10.1); CARBON DIOXIDE 26.6 mmol/L (21.0-32.0); CREATININE - SERUM 1.3 mg/dL (0.6-1.3); POTASSIUM - SERUM 4.2 mmol/L (3.5-5.1)
[2018-03-24 05:50] LABS: PROTEIN - SERUM 5.1 g/dL (6.4-8.2)
[2018-03-25] VITALS (24 sets, daily range): BP systolic 92–147; BP diastolic 28–99
[2018-03-25 06:35] LABS: HEMATOCRIT 23.7 % (42.0-54.0); HEMOGLOBIN 7.9 g/dL (13.5-17.5); MCH 32.9 pg (26.0-34.0); MCHC 33.3 g/dL (31.0-37.0); MCV 98.8 fL (80.0-100.0); MEAN PLATELET VOLUME 9.8 fL (7.4-10.4); RBC 2.4 10x6/uL (4.20-6.10); WBC 8.6 10x3/uL (4.8-10.8)
[2018-03-25 06:58] LABS: ALBUMIN 2.3 g/dL (3.4-5.0); ANION GAP 9.5 mmol/L (8-16); BILIRUBIN - TOTAL 0.41 mg/dL (0.2-1.3); CALCIUM 9.8 mg/dL (8.5-10.1); CREATININE - SERUM 1.4 mg/dL (0.6-1.3); POTASSIUM - SERUM 4.5 mmol/L (3.5-5.1); PROTEIN - SERUM 5.3 g/dL (6.4-8.2)
[2018-03-26] VITALS (25 sets, daily range): BP systolic 104–158; BP diastolic 28–94
[2018-03-26 06:10] LABS: HEMATOCRIT 23.1 % (42.0-54.0); HEMOGLOBIN 7.7 g/dL (13.5-17.5); MCH 33.2 pg (26.0-34.0); MCHC 33.3 g/dL (31.0-37.0); MCV 99.6 fL (80.0-100.0); MEAN PLATELET VOLUME 9.6 fL (7.4-10.4); RBC 2.32 10x6/uL (4.20-6.10); RDW 14.9 % (11.5-14.5); WBC 7.9 10x3/uL (4.8-10.8)
[2018-03-26 06:25] LABS: ALBUMIN 2.1 g/dL (3.4-5.0); ANION GAP 9.9 mmol/L (8-16); BILIRUBIN - TOTAL 0.32 mg/dL (0.2-1.3); CALCIUM 9.6 mg/dL (8.5-10.1); CARBON DIOXIDE 26.5 mmol/L (21.0-32.0); CREATININE - SERUM 1.3 mg/dL (0.6-1.3); POTASSIUM - SERUM 4.4 mmol/L (3.5-5.1); PROTEIN - SERUM 5.2 g/dL (6.4-8.2)
[2018-03-27] VITALS (25 sets, daily range): BP systolic 116–155; BP diastolic 33–61
[2018-03-27 07:16] LABS: HEMATOCRIT 24.8 % (42.0-54.0); HEMOGLOBIN 8.2 g/dL (13.5-17.5); MCH 33.1 pg (26.0-34.0); MCHC 33.1 g/dL (31.0-37.0); MEAN PLATELET VOLUME 9.6 fL (7.4-10.4); RBC 2.48 10x6/uL (4.20-6.10); RDW 14.4 % (11.5-14.5); WBC 6.5 10x3/uL (4.8-10.8)
[2018-03-27 07:30] LABS: ALBUMIN 2.3 g/dL (3.4-5.0); ANION GAP 9.1 mmol/L (8-16); BILIRUBIN - TOTAL 0.4 mg/dL (0.2-1.3); CALCIUM 10.1 mg/dL (8.5-10.1); CARBON DIOXIDE 27.2 mmol/L (21.0-32.0); CREATININE - SERUM 1.3 mg/dL (0.6-1.3); POTASSIUM - SERUM 4.3 mmol/L (3.5-5.1); PROTEIN - SERUM 5.7 g/dL (6.4-8.2)
[2018-03-28] VITALS (9 sets, daily range): BP systolic 112–153; BP diastolic 33–72
[2018-03-28] MEDS ORDERED: CORDARONE200 MG PO (11:52)
[2018-03-28] MEDS ORDERED: COLACE100 MG PO (11:53)
[2018-03-28] MEDS ORDERED: TOPROL XL25 MG PO (11:55)
[2018-03-28] MEDS ORDERED: PERCOCET 10/3251 TA1 PO (11:56)
== END 2018-03-28 14:45 | disposition home or self-care (01) | DRG 236 ==
LOC: D.SDCHOLD 11:00 → D.CVICU 03-22 05:00 → D.SDCHOLD 03-22 07:30 → D.CVICU 03-22 11:03
PROVIDERS: Thoracic Surgery (Cardiothoracic Vascular Surgery)
PROC: 021109W Bypass Coronary Artery, Two Arteries from Aorta with Autologous Venous Tissue, Open Approach (ICD-10-PCS; 2018-03-22)
PROC: 06BP4ZZ Excision of Right Saphenous Vein, Percutaneous Endoscopic Approach (ICD-10-PCS; 2018-03-22)
PROC: B24BZZ4 Ultrasonography of Heart with Aorta, Transesophageal (ICD-10-PCS; 2018-03-22)
PROC: 5A1221Z Performance of Cardiac Output, Continuous (ICD-10-PCS; 2018-03-22)
PROC: 02100Z9 Bypass Coronary Artery, One Artery from Left Internal Mammary, Open Approach (ICD-10-PCS; principal; 2018-03-22 07:30)
DX: I25.10 Atherosclerotic heart disease of native coronary artery without angina pectoris (principal); D62 Acute posthemorrhagic anemia; I10 Essential (primary) hypertension; N40.0 Benign prostatic hyperplasia without lower urinary tract symptoms; E78.5 Hyperlipidemia, unspecified; G25.0 Essential tremor

== ENCOUNTER → 2018-04-13 13:55 | Outpatient (CLI) | payer MEDICARE, OTHER ==
[2018-03-23 13:44] VITALS: BMI 29.8
[~2018-04-13 13:55] MED LIST changes: +COLACE100 MG PO; +CORDARONE200 MG PO; +PERCOCET 10/3251 TA1 PO; +TOPROL XL25 MG PO
[2018-04-13 14:37] LABS: HEMATOCRIT 34.3 % (42.0-54.0); HEMOGLOBIN 10.8 g/dL (13.5-17.5)
[2018-04-13 14:54] LABS: ANION GAP 9.2 mmol/L (8-16); CALCIUM 9.9 mg/dL (8.5-10.1); CARBON DIOXIDE 29.5 mmol/L (21.0-32.0); CREATININE - SERUM 1.7 mg/dL (0.6-1.3); POTASSIUM - SERUM 4.7 mmol/L (3.5-5.1)
== END | disposition home or self-care (01) ==
LOC: D.RAD 10:00 → D.LAB 10:15 → D.RAD 13:55
PROVIDERS: Thoracic Surgery (Cardiothoracic Vascular Surgery)
DX: J91.8 Pleural effusion in other conditions classified elsewhere (principal); D64.9 Anemia, unspecified

== ENCOUNTER → 2018-12-08 07:48 | Outpatient (CLI) | payer MEDICARE, OTHER ==
[2018-03-23 13:44] VITALS: BMI 29.8
[2018-12-10 03:09] LABS: TESTOSTERONE - FREE 3.9 pg/mL (6.6-18.1); TESTOSTERONE - SERUM 307 ng/dL (264-916)
== END | disposition home or self-care (01) ==
LOC: D.LAB 07:48
PROVIDERS: ATTEND Family Medicine
DX: R53.83 Other fatigue (principal)

== ENCOUNTER → 2019-02-24 10:23 | Outpatient (CLI) | payer MEDICARE, OTHER ==
[2018-03-23 13:44] VITALS: BMI 29.8
== END | disposition home or self-care (01) ==
LOC: D.MRI 10:23
PROVIDERS: ATTEND Orthopaedic Surgery
DX: M75.41 Impingement syndrome of right shoulder (principal)

== ENCOUNTER 2019-04-13 07:08 | Day surgery (SDC) | payer MEDICARE, OTHER ==
[2019-04-11 10:46] LABS: HEMATOCRIT 41.8 % (42.0-54.0); HEMOGLOBIN 14.1 g/dL (13.5-17.5); MCH 32.6 pg (26.0-34.0); MCHC 33.7 g/dL (31.0-37.0); MCV 96.5 fL (80.0-100.0); MEAN PLATELET VOLUME 9.7 fL (7.4-10.4); RBC 4.33 10x6/uL (4.20-6.10); RDW 12.7 % (11.5-14.5); WBC 6.5 10x3/uL (4.8-10.8)
[2019-04-11 10:56] LABS: ANION GAP 8.6 mmol/L (8-16); CALCIUM 10.3 mg/dL (8.5-10.1); CARBON DIOXIDE 32.2 mmol/L (21.0-32.0); CREATININE - SERUM 1.1 mg/dL (0.6-1.3); POTASSIUM - SERUM 4.8 mmol/L (3.5-5.1)
[~2019-04-13] VITALS: Ht 172.7 cm; Wt 90.7 kg
[~2019-04-13 07:08] MED LIST changes: +ALENDRONATE SOD35 MG PO; +LISINOPRIL10 MG PO; +TUMS X-STR300 MG PO; +VITAMIN D5000 UNIT PO
[2019-04-13 08:36] VITALS: BP 137/71; Ht 172.7 cm; Wt 90.7 kg
[2019-04-13] MEDS ORDERED: HYDROCODON-ACE1 EA10 PO (10:15)
--- NOTE | 2019-04-13 15:06 | NUR ---
1215 IV DC'D. CATHETER INTACT. NO BLEEDING AT SITE. BANDAID APPLIED. PT UNDERSTANDS HOW TO PERFORM PENDULUM EXERCISES AND KNOWS TO BEGIN THIS TOMORROW.
--- NOTE | 2019-04-20 11:53 | OP ---
PATIENT NAME: LAURO LINDA MEDICAL RECORD: [id number] :40 LOCATION:[place] ADMISSION DATE: SURGEON: MARCUS RUIZ MD DATE OF OPERATION: 04/13/2019 PREOPERATIVE DIAGNOSIS: Rotator cuff tear of the right shoulder with impingement syndrome. POSTOPERATIVE DIAGNOSIS: Rotator cuff tear of the right shoulder with impingement syndrome. PROCEDURE: 1. Arthroscopic rotator cuff repair. 2. Arthroscopic distal clavicle excision done through separate incision. 3. Arthroscopic subacromial decompression with acromioplasty and bursectomy. SURGEON: Marcus Ruiz MD ANESTHESIA: General. INTRAOPERATIVE COMPLICATIONS: None. SUMMARY OF PATHOLOGIC FINDINGS: Consistent with the preoperative radiographs, MRI as well as physical examination, the patient had a full thickness rotator cuff tear downward sloping acromion with excoriation of the coracoacromial ligament as well as grade IV chondromalacia of the acromioclavicular joint. OPERATIVE SUMMARY IN DETAIL: After obtaining the appropriate preoperative orthopedic surgery consent as well as anesthetic consultation, evaluation and clearance, the patient was brought to the operating room and placed on the operating table in supine position. After general laryngeal mask airway was administered, the patient was placed in left lateral decubitus position. All pressure points were well padded to include down leg peroneal pad as well as axillary roll. The patient was held firmly to the table using the vacuum pack suction system. Right upper extremity and shoulder were then prepped and draped in routine sterile fashion. The arm was held in the [employer] traction boom at 30 degrees of forward flexion, 30 degrees of abduction, 10 pounds of traction laterally. At this point, the appropriate timeout was taken with the appropriate identifiers. This was agreed upon by all. Arthroscopy was established in the glenohumeral joint from the portion portal. Anterior portal was established in the anterior safe interval. Diagnostic arthroscopy did reveal the patient to have full thickness rotator cuff tearing. Transrotator cuff portal was created for taking down the nonviable tissues of the articular aspect of the rotator cuff and to debride the medial aspect of the supraspinatus tendinous footprint. Attention was then turned to the subacromial space. While in the subacromial space, the [place] tissue ablation system from [employer] was utilized to denude the undersurface of the acromion of all soft tissue elements and release the coracoacromial ligament. A 5-0 barrel bur was then used to perform acromioplasty at the level of acromioclavicular joint and through a separate incision under direct arthroscopic visualization, distal clavicle was excised using the 5 mm bur. Lastly further decortication was carried out over the greater tuberosity supraspinatus tendinous foot. Then a single inverted FiberTape was utilized and anchored laterally with a 5.5 SwiveLock from [employer]. Having completed this, arthroscopy portals were closed in routine interrupted fashion using 4-0 Prolene. Sterile dressings were applied. The patient was OPERATIVE REPORT [id number] LAURO LINDA awakened and taken to the recovery room in stable condition. All final needle and sponge counts were correct. TRANSINT:[id number] Voice Confirmation ID: [id number] DOCUMENT ID: [id number] JOSEPH DAVIDSON, MARCUS CAIN at 1153 CC: [id number] DICTATION DATE: 04/20/19 1107 STRAIGHT CUTTER: 04/20/19 1126 [facility] 04/13/19 [place] [id number] [place] [address]
== END 2019-04-13 12:30 | disposition home or self-care (01) ==
LOC: D.OPS 07:08 → D.PAN 13:00 → D.OPS 13:00
PROVIDERS: Anesthesiology; ATTEND Orthopaedic Surgery
DX: M75.121 Complete rotator cuff tear or rupture of right shoulder, not specified as traumatic (principal); M75.41 Impingement syndrome of right shoulder; Z01.812 Encounter for preprocedural laboratory examination

== ENCOUNTER → 2019-05-10 11:16 | Outpatient (CLI) | payer MEDICARE, OTHER ==
[2019-04-13 08:36] VITALS: BMI 30.4
[~2019-05-10 11:16] MED LIST changes: +HYDROCODON-ACE1 EA10 PO
== END | disposition home or self-care (01) ==
LOC: D.HCCARDIO 11:00
PROVIDERS: ATTEND Internal Medicine Cardiovascular Disease
DX: I25.10 Atherosclerotic heart disease of native coronary artery without angina pectoris (principal)

== ENCOUNTER → 2019-10-09 09:55 | Outpatient (CLI) | payer MEDICARE, OTHER ==
[2019-04-13 08:36] VITALS: BMI 30.4
== END | disposition home or self-care (01) ==
LOC: D.US 09-01 10:00
PROVIDERS: ATTEND Internal Medicine Cardiovascular Disease
DX: I65.23 Occlusion and stenosis of bilateral carotid arteries (principal)